=== PATIENT | female | born 1940 | race Caucasian/White ===

== ENCOUNTER 2024-09-01 12:29 | Outpatient (AMB) | payer MEDICARE, OTHER, SELFPAY ==
--- OUTSIDE RECORDS SUMMARY | 2024-09-01 12:45 | XMS_ITS | Clinical Summary ---
Author Organization [facility] Address [address] [place] [address] Phone Care Team Providers Care Pig Lead Melter Helper Name Role Phone Kaye Blunt NP Primary Care Provider Encounters Date Type Department Care Team Description 08/31/[address] [place] [address] Kaye Blunt NP Referral (Left message for patient to call back to schedule a new patient visit with a street contractor. Marzena R) from Last 3 Months Social History Tobacco Use Types Packs/Day Years Used Date Smoking Tobacco: Never Assessed Comments Unknown Sex and Gender Information Value Date Recorded Sex Assigned at Not on file Legal Sex Female 10:17 AM EST Gender Identity Not on file Sexual Orientation Not on file Plan of Treatment Health Maintenance Due Date Last Done Comments DTaP,Tdap,and Td Vaccines (1 - Tdap) 08/16/1959 Pneumococcal Vaccine: 50+ Ye ars (1 of 1 - PCV) 1990 Zoster Vaccines (1 of 2) 1990 RSV Immunization Adult Patie nts (1 - 1-dose 75+ series) 08/16/2015 COVID-19 Vaccine ( - 2023-2 5 season) 2023 Cholesterol Screening (Lipid Panel) 02/17/2024 Depression Screening 02/17/2024 Falls Risk Assessment 02/17/2024 Medicare Annual Wellness Visit 02/17/2024 Osteoporosis Screening (Bone Density Screening) 02/17/2024 Social Influencers of Health Screening 02/17/2024 Influenza Vaccine (#1) 2024 HIB Vaccines Aged Out No longer eligi ble based on patient's age to complete this topic HPV Vaccines Aged Out No longer eligi ble based on patient's age to complete this topic Hepatitis A Vaccines Aged Out No long er eligible based on patient's age to complete this topic Hepatitis B Vaccines Aged Out No long er eligible based on patient's age to complete this topic IPV Vaccines Aged Out No longer eligi ble based on patient's age to complete this topic MMR Vaccines Aged Out No longer eligi ble based on patient's age to complete this topic Meningococcal ACWY Vaccine Aged Out N o longer eligible based on patient's age to complete this topic Meningococcal B Vaccine Aged Out No l onger eligible based on patient's age to complete this topic RSV Immunization Patients Un agustín 20 months Aged Out No longer eligible b ased on patient's age to complete this topic Varicella Vaccines Aged Out No longer eligible based on patient's age to complete this topic Insurance MEDICARE [facility] MEDICARE Care Teams Pig Lead Melter Helper Relationship Specialty Start Date End Date Kaye Blunt NP PCP - General Nurse Practitioner 02/17/24
--- OUTSIDE RECORDS SUMMARY | 2024-09-01 12:45 | XMS_ITS | Clinical Summary ---
Author Organization [facility] Address [address] [place] [address] Care Team Providers Care Block Engraver Name Role Phone Kaye Blunt APRN Primary Care Provider [phone] Marcellus Cline MD Unavailable [phone] Aubrey Petersen MD Unavailable Allergies Active Allergy Reactions Criticality Noted Date Comments Quinapril Other (See Comments) 07/09/2020 Sulfamethoxazole-Trimethopr im Hives,Other (See Comments) Medium 03/10/2017 Medications aspirin enteric coated (ECOTRIN LOW STRENGTH) 81 MG EC tablet Take 1 tablet by mouth. Active B Complex Vitamins (Vitamin B Complex) Tab Active Brindall Feliz-Chromium Melissa 500-0.2 MG Tab Active estradiol (VAGIFEM) 10 MCG vaginal tablet Insert 10 mcg into the vagina. 3 Active fluticasone (FloNASE) 50 mcg/spray nasal spray fluticasone propionate 50 mcg/actuation nasal spray,suspension Active GARLIC PO Active MAGNESIUM PO Active Probiotic, Lactobacillus, Cap Active OMEprazole (PriLOSEC) 20 MG capsule Take 20 mg by mouth daily. 3 Active Red Yeast Rice Extract 600 MG Cap Active [place] Thyroid 15 MG tablet TAKE 1 TABLET BY MOUTH DAILY IN THE MORNING with 30mg [place] 3 Active [place] Thyroid 30 MG tablet TAKE 1 TABLET BY MOUTH EVERY MORNING WITH 15mg tablet 3 Active irbesartan-hydr oCHLOROthiazide (AVALIDE) 150-12.5 MG per tabletIndicatio ns:Chronic renal failure, stage 3a (HCC) Take 1 tablet by mouth daily. 90 tablet 1 Active metFORMIN (GLUCOPHAGE-XR) 500 MG 24 hr tabletIndicatio ns:Chronic renal failure, stage 3a (HCC) Take 1 tablet (500 mg total) by mouth 2 (two) times a day with meals. Swallow whole. Do not crush, break or chew. 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 05/04/2023 Encounters Date Type Department Care Team Description 07/14/2024 Orders Only NEPHROLOGY IP [address] [place] [address] Marcellus Cline MD Chronic renal failure, stage 3a (HCC) 07/13/2024 Telephone [facility] Department of Internal Medicine & Nephrology [place] [address] [place] [address] [address] [place] [address] Marcellus Cline MD 07/11/2024 1:40 PM EDT Office Visit [facility] Department of Internal Medicine & Nephrology [place] [address] [place] [phone] Marcellus Cline MD Acute cystitis without hematuria (Primary Dx); Chronic renal failure, stage 3a (HCC); Hyperkalemia; Essential hypertension; Hyponatremia; Hypertensive renal disease; Diabetic nephropathy associated with type 2 diabetes mellitus (HCC); Hypovitaminosis D 07/09/2024 Travel 07/08/2024 Telephone [facility] of Internal Medicine & Nephrology [place] [address] [facility] [address] [place] [address] Marcellus Cline MD 07/06/2024 Travel from Last 3 Months Social History Tobacco Use Types Packs/Day Years Used Date Smoking Tobacco: Never Assessed Comments Unknown Sex and Gender Information Value Date Recorded Sex Assigned at Female 03/06/2024 7:35 AM EST Legal Sex Female 4:38 PM EST Gender Identity Female 03/06/2024 7:35 AM EST Sexual Orientation Heterosexual (straight) 03/06 7:35 AM EST Last Filed Vital Signs Vital Sign Reading Time Taken Comments Blood Pressure 138/76 07/11/2024 1:38 PM EDT Pulse 102 07/11/2024 1:38 PM EDT Temperature - - Respiratory Rate - - Oxygen Saturation 96% 07/11/2024 1:38 PM EDT Inhaled Oxygen Concentration - - Weight 63 kg (139 lb) 03/07/2024 1:38 PM EST Height 152.4 cm (5') 09/14/2023 12:23 PM EDT Body Mass Index 27.15 09/14/2023 12:23 PM EDT Plan of Treatment Upcoming Encounters Date Type Department Care Team (Late st Contact Info) Description 11/11/2024 1:20 PM EDT Office Visit [facility] Department of Internal Medicine & Nephrology [place] [address] [place] [phone] Marcellus Cline MD [address] [facility] [address] [place], [place] [id number] Health Maintenance Due Date Last Done Comments Foot Exam 1950 Lipid Panel 1950 Ophthalmology Exam 1950 DTaP/Tdap/Td Vaccines (1 - Tdap) 08/16/1959 Pneumococcal Vaccines 50+ (1 of 2 - PCV) 08/16/1959 Zoster (Shingles) Vaccine (1 of 2) 1990 DXA Bone Density (Females,Ages 65 and older) 2005 RSV Vaccine 60 years and older and Patients (1 - 1-dose 75+ series) 08/16/2015 COVID-19 Vaccine ( season) 2024 02/06/2024, 11/19/2022, 05/31/2021, Additional history exists Influenza Vaccine 09/30/2024 02/06/2024, , 12/21/2021, Additional history exists Hemoglobin A1C 01/09/2025 07/09/2024, 02/22/2024 Microalbumin/Creatinine Ratio Urine 02/21/2025 02/22/2024 Creatinine with GFR 07/09/2025 07/09/2024, 02/22/2024, 09/14/2023 Hepatitis B Vaccines Aged Out No long er eligible based on patient's age to complete this topic Procedures Procedure Name Priority Date/Time Associated Diagnosis Comments FERRITIN Routine 07/09/2024 8:55 AM EDT PHOSPHORUS Routine 07/09/2024 8:55 AM EDT URIC ACID Routine 07/09/2024 8:55 AM EDT IRON AND TOTAL IRON BINDING CAPACITY Routine 07/09/2024 8:55 AM EDT VITAMIN D, 25-HYDROXY Routine 07/09/2024 8:55 AM EDT HEMOGLOBIN A1C Routine 07/09/2024 8:55 AM EDT MICROSCOPIC EXAMINATION Routine 07/09/2024 8:55 AM EDT URINALYSIS, COMPLETE Routine 07/09/2024 8:55 AM EDT BASIC METABOLIC PANEL Routine 07/09/2024 8:55 AM EDT Essential hypertension TRANSFERRIN Routine 06/24/2024 8:22 AM EDT Acute cystitis without hematuria Hyperkalemia Essential hypertension Hypertensive renal disease Hyponatremia Hypovitaminosis D Diabetic nephropathy associated with type 2 diabetes mellitus (HCC) [place] vaginitis Chronic renal failure, stage 3a (HCC) VITAMIN D 1,25 DIHYDROXY Routine 06/24/2024 8:22 AM EDT Acute cystitis without hematuria Hyperkalemia Essential hypertension Hypertensive renal disease Hyponatremia Hypovitaminosis D Diabetic nephropathy associated with type 2 diabetes mellitus (HCC) [place] vaginitis Chronic renal failure, stage 3a (HCC) PTH, INTACT WITH IONIZED CALCIUM Routine 06/24/2024 8:22 AM EDT Acute cystitis without hematuria Hyperkalemia Essential hypertension Hypertensive renal disease Hyponatremia Hypovitaminosis D Diabetic nephropathy associated with type 2 diabetes mellitus (HCC) [place] vaginitis Chronic renal failure, stage 3a (HCC) ALBUMIN/CREATININE RATIO, RANDOMURINE Routine 02/22/2024 7:49 AM EST from Last 3 Months or Most Recently Relevant to Health Maintenance Results * (ABNORMAL) Microscopic Examination (07/09/2024 8:55 AM EDT) WBC, Urine 11-30(A) 0 - 5 /hpf [facility] 1 Rbc, Urine None seen 0 - 2 /hpf [facility] 1 EPITHELIAL CELLS (NON RENAL) UR 0-10 0 - 10 /hpf [facility] 1 Urine Casts None seen None seen /lpf [facility] 1 Bacteria Few None seen/Few [facility] 1 07/09/2024 8:55 AM EDT 07/09/2024 Narrative [facility] SHAYY) - 07/11/2024 12:05 AM EDT Performed at: [facility] [address] [id number] Grass Cutter: Sahra White MD, Phone: [phone] us Marcellus Cline MD URINE ORDERABLES Final Re sult [facility] SHAYY) [facility] * (ABNORMAL) Urinalysis, Complete (07/09/2024 8:55 AM EDT) Specific [place], Urine 1.013 1.005 - 1.030 [facility] 1 PH (Urine) 6.5 5.0 - 7.5 [facility] 1 Color Ur Yellow Yellow [facility] 1 Appearance, Urine Clear Clear [facility] 1 WBC Esterase Ur 3+(A) Negative [facility] 1 Protein Negative Negative/Tra ce [facility] 1 Glucose, Urine Negative Negative [facility] 1 Ketones Negative Negative [facility] 1 Urine Occult Blood Negative Negative [facility] 1 Bilirubin, Urine Negative Negative [facility] 1 Urobilinogen 0.2 0.2 - 1.0 mg/dL [facility] 1 Nitrite, Urine Negative Negative [facility] 1 Urine Microscopic Exam See below: [facility] 1 Comment: Microscopic was indicated and was performed. 07/09/2024 8:55 AM EDT 07/09/2024 Narrative [facility] SHAYY) - 07/11/2024 12:05 AM EDT Performed at: - [facility] [id number] Grass Cutter: Sahra White MD, Phone: [phone] Marcellus Cline MD URINE ORDERABLES Final Re sult Performing Organization Address [facility]/ZIP Co de Phone Number [facility] ([place]) [facility] * Iron and Total Iron Binding Capacity (07/09/2024 8:55 AM EDT) Total Iron Binding Capacity 309 250 - 450 ug/dL [facility] 1 UIBC 242 118 - 369 ug/dL [facility] 1 Iron 67 27 - 139 ug/dL [facility] 1 Iron Saturation 22 15 - 55 % [facility] 1 07/09/2024 8:55 AM EDT 07/09/2024 Sarah [facility] SHAYY) - 07/11/2024 3:05 PM EDT Performed at: [facility] [id number] Grass Cutter: Sahra White MD, Phone: [phone] Marcellus Cline MD LAB BLOOD ORDERABLES Jennifer l Result Performing Organization Address [facility]/ZIP Co de Phone Number [facility] SHAYY) [facility] * VITAMIN D, 25-HYDROXY (07/09/2024 8:55 AM EDT) Vitamin D, 25-Hydroxy 31.6 30.0 - 100.0 ng/mL [facility] 1 Comment: Vitamin D deficiency has been defined by the [place] of [employer] and an Endocrine Society practice guideline as a level of serum 25-OH vitamin D less than 20 ng/mL (1,2). The Endocrine Society went on to further define vitamin D insufficiency as a level between 21 and 29 ng/mL (2). 1. IOM ([place] of [employer]). 2010. Dietary reference intakes for calcium and D. [place]: The National Academies Press. 2. Jay MF, Mckenzie WU, Darrian BOGGS, et al. Evaluation, treatment, and prevention of vitamin D deficiency: an Endocrine Society clinical practice guideline. JCEM. 2010; 96(5):3911-30. 07/09/2024 8:55 AM EDT 07/09/2024 Narrative [facility] ([place]) - 07/11/2024 12:05 AM EDT Performed at: - [facility] [id number] Grass Cutter: Sahra White MD, Phone: [phone] Marcellus Cline MD LAB BLOOD ORDERABLES Jennifer l Result Performing Organization Address [facility] Co de Phone Number [facility] ([place]) [facility] * URIC ACID (07/09/2024 8:55 AM EDT) Uric Acid 6.3 3.1 - 7.9 mg/dL [facility] 1 Comment: Therapeutic target for gout patients: <6.0 07/09/2024 8:55 AM EDT 07/09/2024 Narrative [facility] SHAYY) - 07/11/2024 3:05 PM EDT Performed at: - [facility] [id number] Grass Cutter: Sahra White MD, Phone: [phone] Marcellus Cline MD LAB BLOOD ORDERABLES Jennifer l Result Performing Organization Address [facility] Co de Phone Number [facility] (HEMANTH[place]ERYL) [facility] * (ABNORMAL) PHOSPHORUS (07/09/2024 8:55 AM EDT) Phosphorus 2.9(L) 3.0 - 4.3 mg/dL [facility] 1 07/09/2024 8:55 AM EDT 07/09/2024 Narrative [facility] (STARCHERYL) - 07/11/2024 3:05 PM EDT Performed at: [address] [place] [id number] Grass Cutter: Sahra White MD, Phone: [phone] Marcellus Cline MD LAB BLOOD ORDERABLES Jennifer l Result Performing Organization Address [facility] Co de Phone Number [facility] ([place]) [facility] * (ABNORMAL) Hemoglobin A1C (07/09/2024 8:55 AM EDT) Hemoglobin A1C 7.4(H) 4.8 - 5.6 % [facility] 1 Comment: Prediabetes: 5.7 - 6.4 Diabetes: >6.4 Glycemic control for adults with diabetes: <7.0 07/09/2024 8:55 AM EDT 07/09/2024 Narrative [facility] ([place]) - 07/11/2024 12:05 AM EDT Performed at: [address] [id number] Grass Cutter: Sahra White MD, Phone: [phone] Marcellus Cline MD LAB BLOOD ORDERABLES Jennifer l Result Performing Organization Address [facility] Co de Phone Number [facility] ([place]) [facility] * FERRITIN (07/09/2024 8:55 AM EDT) Ferritin 65 15 - 150 ng/mL [facility] 1 07/09/2024 8:55 AM EDT 07/09/2024 Narrative [facility] ([place]) - 07/11/2024 4:06 PM EDT Performed at: [facility] [id number] Grass Cutter: Sahra White MD, Phone: [phone] Marcellus Cline MD LAB BLOOD ORDERABLES Jennifer l Result [facility] ([place]) [facility] * (ABNORMAL) BASIC METABOLIC PANEL (07/09/2024 8:55 AM EDT) Glucose 153(H) 70 - 99 mg/dL [facility] 1 Blood Urea Nitrogen (BUN) 25 8 - 27 mg/dL [facility] 1 Creatinine 0.86 0.57 - 1.00 mg/dL [facility] 1 eGFR 67 >59 mL/min/1.7 3 [facility] 1 BUN/Creatinine Ratio 29(H) 12 - 28 [facility] 1 Sodium 130(L) 134 - 144 mmol/L [facility] 1 Potassium 5.3(H) 3.5 - 5.2 mmol/L [facility] 1 Chloride 91(L) 96 - 106 mmol/L [facility] 1 CARBON DIOXIDE 22 20 - 29 mmol/L [facility] 1 Calcium 9.7 8.7 - 10.3 mg/dL [facility] 1 Blood Blood specimen / Unknown 07/09/2024 8:55 AM EDT 07/09/2024 Narrative [facility] SHAYY) - 07/11/2024 12:05 AM EDT Performed at: 01 - [facility] [address] [id number] Grass Cutter: Sahra White MD, Phone: [phone] Marcellus Cline MD LAB BLOOD ORDERABLES Edit ed Result - Final [facility] ([place]) [facility] * PTH, INTACT WITH IONIZED CALCIUM (06/24/2024 8:22 AM EDT) Calcium, Ionized 5.1 4.5 - 5.6 mg/dL [facility] 1 PTH, Intact 41 15 - 65 pg/mL [facility] 1 Blood Blood specimen / Unknown 06/24/2024 8:22 AM EDT 06/24/2024 Narrative [facility] ([place]) - 06/25/2024 9:05 PM EDT Performed at: [facility] [address] [id number] Grass Cutter: Sahra White MD, Phone: [phone] Marcellus Cline MD LAB BLOOD ORDERABLES Jennifer l Result [facility] (STARCHERY[place]) [facility] * VITAMIN D 1,25 DIHYDROXY (06/24/2024 8:22 AM EDT) Vit D 1,25 di-OH 34.6 24.8 - 81.5 pg/mL [facility] 1 Blood Blood specimen / Unknown 06/24/2024 8:22 AM EDT 06/24/2024 Narrative [facility] (STARCHERY[place]) - 06/25/2024 4:06 PM EDT Performed at: [facility] [id number] Grass Cutter: Sahra White MD, Phone: [phone] Marcellus Cline MD LAB BLOOD ORDERABLES Jennifer l Result Performing Organization Address [facility]/ZIP Co de Phone Number [facility] ([place]) [facility] * TRANSFERRIN (06/24/2024 8:22 AM EDT) Transferrin 242 149 - 313 mg/dL [facility] 1 Blood Blood specimen / Unknown 06/24/2024 8:22 AM EDT 06/24/2024 Narrative [facility] ([place]ARCHERY[place]) - 06/25/2024 6:06 AM EDT Performed at: [facility] [id number] Grass Cutter: Sahra White MD, Phone: [phone] Marcellus Cline MD LAB BLOOD ORDERABLES Jennifer l Result Performing Organization Address [facility]/ZIP Co de Phone Number [facility] (STARCHERY[place]) [facility] * (ABNORMAL) Albumin/Creatinine Ration, RandomUrine (02/22/2024 7:49 AM EST) Albumin, Urine 36.8 Not Estab. ug/mL [facility] 1 Microalbumin/Cre atinine Ratio 73(H) 0 - 29 mg/g creat [facility] 1 Comment: Normal: 0 - 29 Moderately increased: 30 - 300 Severely increased: >300 02/22/2024 7:49 AM EST 02/22/2024 Narrative [facility] ([place]) - 02/23/2024 3:06 PM EST Performed at: - [facility] [address] [id number] Grass Cutter: Sahra White MD, Phone: [phone] us Marcellus Cline MD URINE ORDERABLES Final Re sult [facility] ([place]) [facility] 1 from Last 3 Months or Most Recently Relevant to Health Maintenance Insurance MEDICARE PART A & B [facility] Care Teams Block Engraver Relationship Specialty Start Date End Date Kaye Blunt APRN [address] [place] [address] PCP - General Family Medicine 05/04/23 Marcellus Cline MD [address] [place] [address] Nephrology 05/04/23 Aubrey Petersen MD [address] [place] [address] Endocrinology 09/14/23
--- OUTSIDE RECORDS SUMMARY | 2024-09-01 12:45 | XMS_ITS | Clinical Summary ---
Author Organization [facility] Facility Address [address] [place] [address] Care Team Providers Care Trimmer Sawyer Name Role Phone Kaye Blunt NP Primary Care Provider [phone] Allergies Active Allergy Reactions Criticality Noted Date Comments Quinapril Other (see comments) 07/09/2020 Quinolones Hives 03/10/2017 Sulfamethoxazole-Trimethopr im Hives,Other (see comments) 03/10/2017 Medications aspirin (ST ROSA) 81 MG EC tablet Take 1 tablet by mouth 1 (one) time each day Active Estradiol 10 MCG tablet estradiol 10 mcg vaginal tablet 0 Active fluticasone (FLONASE) 50 MCG/ACT nasal spray fluticasone propionate 50 mcg/actuation nasal spray,suspensio n Active metFORMIN XR (GLUCOPHAGE-XR) 500 MG 24 hr tablet metformin ER 500 mg tablet,extended release 24 hr Active omeprazole (PriLOSEC) [address] capsule omeprazole 20 mg capsule,delayed release Active Red Yeast Rice Extract 600 MG capsule Active thyroid (ARMOUR) 30 MG tablet Take 2 tablets by mouth 1 (one) time each day Active B COMPLEX VITAMINS ER PO Activ e Fish Oil-Cholecalcife rol (OMEGA-3 FISH OIL/VITAMIN D3 PO) Take 2 capsules by mouth 2 (two) times a day Active Multiple Vitamin (MULTIVITAMIN ADULT PO) Active Magnesium 200 MG tablet Active irbesartan-hydro CHLOROthiazide (AVALIDE) 150-12.5 MG per tablet Take 1 tablet by mouth 1 (one) time each day 90 tablet 11 3 Active Dapagliflozin Propanediol (Farxiga) 10 MG tablet Take 10 mg by mouth 1 (one) time each day in the morning 90 tablet 5 3 Active amLODIPine (NORVASC) 5 MG tablet Take 1 tablet (5 mg total) by mouth 1 (one) time each day 90 tablet 3 4 Active Active Problems Problem Noted Date Diagnosed Date Type 2 diabetes mellitus with diabetic nephropat hy 11/20/2020 Stage 3a chronic kidney disease 11/20/2020 Hypo-osmolality and hyponatremia 09/27/2020 Chronic kidney disease stage 3 07/09/2020 Essential hypertension 07/09/2020 Hyperkalemia 07/09/2020 Hypertensive renal disease 07/09/2020 Type 2 diabetes mellitus 07/09/2020 Atrophic vaginitis 03/10/2017 Family History Medical History Relation Comments Cancer Father Diabetes Mother Heart disease Mother Hypertension Mother Diabetes Sibling Relation Status Comments Father Mother Sibling Social History Tobacco Use Types Packs/Day Years Used Date Smoking Tobacco: Never Smokeless Tobacco: Never Tobacco Cessation:Counseling Given: Not Answered Alcohol Use Standard Drinks/Week Comments Not Currently 0 (1 standard drink = 0.6 oz pure alcohol) Alcoholic Drinks/day: Occasional social drink Comments Unknown Sex and Gender Information Value Date Recorded Sex Assigned at Not on file Legal Sex Female 4:56 PM EST Gender Identity Not on file Sexual Orientation Not on file Last Filed Vital Signs Vital Sign Reading Time Taken Comments Blood Pressure 177/81 12/09/2022 4:29 PM EDT Pulse 110 12/09/2022 4:29 PM EDT Temperature - - Respiratory Rate - - Oxygen Saturation 96% 07/10/2020 2:44 PM EDT Inhaled Oxygen Concentration - - Weight 64.4 kg (142 lb) 12/09/2022 4:29 PM EDT Height 152.4 cm (5') 01/13/2020 12:00 PM EST Body Mass Index 27.73 01/13/2020 12:00 PM EST Plan of Treatment Health Maintenance Due Date Last Done Comments Hepatitis B Vaccine (1 of 3 - Risk 3-dose series) 2000 Diabetes: Ophthalmology Exam 04/02/2020 Diabetes: Pedal Pulse Checked 04/02/2020 Diabetes: Sensory Foot Exam 04/02/2020 Diabetes: Visual Foot Exam 04/02/2020 Diabetes: Hemoglobin A1C 09/10/2023 024, 12/05/2022, 07/09/2022, Additional history exists Influenza Vaccine (Season Ended) 2024 12/30/19 19, 12/06/2015 Pneumococcal Vaccine: 50+ Years Completed 9, 08/17/2014 Pneumococcal Vaccine: Peds ( 0 to 5 Years) and At-Risk Patients (6 to 49 Years) Discontinued 08/20/2018, 08/17/2014 Procedures Procedure Name Priority Date/Time Associated Diagnosis Comments HEMOGLOBIN A1C Routine 12/05/2022 8:04 AM EDT Stage 3a chronic kidney disease (HCC) Essential hypertension Hypo-osmolality and hyponatremia Hypertension Hypertensive renal disease Type 2 diabetes mellitus with diabetic nephropathy (HCC) Hyperkalemia from Last 3 Months or Most Recently Relevant to Health Maintenance Results * (ABNORMAL) Hemoglobin A1c (12/05/2022 8:04 AM EDT) Hemoglobin A1C 7.3(H) (4.0-5.6) % [facility] Comment: MONITORING: In known diabetic patients, hemoglobin A1c targets should be discussed with health care provider. DIAGNOSTIC USE: The [place] Diabetes Association (ADA) and the World Health Organization (WHO) recommend the use of HbA1c to diagnose diabetes using a threshold of 6.5%. Patients who have an HbA1c between 5.7% and 6.4% are considered at increased risk for developing diabetes in the future. CAUTION: Falsely low HbA1c results may be observed in patients with hemolytic anemia, homozygous forms of abnormal hemoglobin (e.g. SS, CC, SC), , recent blood loss or hemoglobin F greater than 7%. Fructosamine may be used as an alternate test in these cases. REFERENCE: ADA: Standards of Medical Care in Diabetes 2020, The Journal of Clinical and Applied Research and Education Volume 43, Supplement 1 Testing performed or reported by [facility], a Service of [facility], [address] [place] [id number] Francisco Spain MD, Special Projects Manager [facility]# [id number] Blood specimen (specimen) Venous blood / Unknown 12/05/2022 8:04 AM EDT 12/05/2022 8:06 AM EDT Marcellus Cline MD LAB BLOOD ORDERABLES Jennifer beckford Result [facility] from Last 3 Months or Most Recently Relevant to Health Maintenance Insurance [facility] Medicare [facility] Medicare Care Teams Trimmer Sawyer Relationship Specialty Start Date End Date Kaye Blunt NP [address] [place] [address] PCP - General 03/12/20
--- NOTE | 2024-09-01 13:04 | A.SPINEOV_ITS ---
Vital Signs 09/01/24 13:10 Height 5 ft Weight 143 lb BMI 27.9 Intake Visit Reasons: nerve root impingement at L4-5 Intake Note: Ms. Gabriel is here today c/o Low back pain. Power Distribution Engineer Required: No Allergies sulfamethoxazole (From Bactrim) Allergy (Severe, Verified 09/01/24 13:11) Hives trimethoprim (From Bactrim) Allergy (Severe, Verified 09/01/24 13:11) Hives Physical Exam Vital Signs: BMI result Body Mass Index 27.9 Assessment & Plan Assessment & Plan (1) Lumbar stenosis: Code(s): M48.061 - Spinal stenosis, lumbar region without neurogenic claudication Category: Medical Plan This is a self-referred 84-year-old female presents to the office today for complaints of bilateral lower extremity pain that radiates down the back of her legs into her calves. The pain is worse with standing walking it is better when she sits. The pain has been coming on for years but for whatever reason about 8 or 9 months ago it started to get progressively worse. She has gotten now to the point where she is having a hard time doing many of the things she normally enjoys. Even simple things like walking through the grocery store are very difficult. She tried physical therapy, chiropractic as well as cortisone injections at the [facility]. She has been taking Tylenol as well. Unfortunately these things are not helping. She also saw a vascular specialist who told her that the arteries in her legs looked fine. The symptoms are only getting worse, she found Dr. Urrutia name online as a minimally invasive wound care specialist and came in to see us today for an evaluation. PMH: She is reasonably healthy, history of hypertension, type 2 diabetes with an A1c that normally ranges around 7, hypothyroidism. She has never had surgery. Denies any history of cardiopulmonary disease, stroke, liver or kidney disease, bleeding disorders, blood clots, cancer or infections. Social hx: She does not smoke, drink or use any recreational drugs Medications: Baby aspirin, [place] thyroid, metformin, Zetia, omeprazole, irbesartan Allergies: Bactrim, Levaquin and Ceftin Physical exam: Awake alert oriented no acute distress, able to stand up out of a chair independently walk to the examining table, slowly get up on the table, strength and reflexes are full. Imaging review: Lumbar MRI done at [facility] shows moderate to severe stenosis at L4-5. There other more mild degrees of spondylosis but nothing significant. There is facet arthropathy at L4-5. Impression: 84-year-old female presents with neurogenic claudication radiating down the back of the legs into her calves when she stands and walks, gets better when she sits down. She has moderate to severe stenosis at L4-5. Films were reviewed with Dr. Urrutia. In light of the fact that the patient has attempted conservative treatment with no improvement, we believe she would be a good candidate for a left-sided approach for bilateral L4-5 decompression. We will get a set of standing x-rays just as a precaution because of the facet arthropathy but doubtful that she has any actual instability. We have scheduled her for surgery on September 22. She may require preoperative clearance from her primary care physician because of her age. The patient was given risk and benefits of surgery including but not limited to infection, hematoma, nerve injury, durotomy, weakness, bowel/bladder injury, persistent pain. We also discussed the option to continue with conservative treatment and patient wishes to proceed with surgery. They are aware they should stop aspirin and fish oil 7 days prior to surgery. All questions were answered to the best of our ability. If there is anything about this patients medical history that we have overlooked or concerns you have about us proceeding with surgery we would appreciate any input you can offer Thank you for allowing us to care for your patient. The total time spent with this visit with this patient was 45 minutes reviewing history, physical exam, lumbar imaging review, and implementation of treatment plan or further diagnostic testing Jose D Urrutia MD,PhD [facility] Orders: Orders XR lumbar spine 4V min Today M48.061 - Spinal stenosis, lumbar region without neurogenic claudication Coding Level of Care Code New Pt Level 4 (28718) Diagnoses Lumbar stenosis M48.061
[2024-09-01 13:10] VITALS: BMI 27.9
== END 2024-09-01 14:33 | disposition home or self-care (01) ==
LOC: HO.HNS 12:30
PROVIDERS: PCP Nurse Practitioner Family; Visit Provider Physician Assistant
DX: M48.061 Spinal stenosis, lumbar region without neurogenic claudication (principal)
CPT/HCPCS: 99204

== ENCOUNTER 2024-09-01 12:29 | Outpatient (REF) | payer MEDICARE, OTHER, SELFPAY ==
--- NOTE | ~2024-09-01 | XR_ITS ---
CLINICAL HISTORY: M48.061 - Spinal stenosis, lumbar region without neurogenic claudication --- Additional Notes or Special Instructions: standing, a p, lateral with flex ext views 4 views lumbar spine Comparison: None provided Findings: Normal vertebral body alignment. No acute fracture. Osteopenia. Multilevel spondylosis with diffuse osteophytosis, facet arthropathy and degenerative disc disease. Multilevel intervertebral foraminal narrowing pronounced at L5-S1. Dextroscoliosis. Aortic calcifications. IMPRESSION: Chronic changes without acute findings. This document has been electronically signed by: Jose Leung MD on 09/02/2024 18:12:18
--- OUTSIDE RECORDS SUMMARY | 2024-09-01 13:43 | XMS_ITS ---
Author Name [facility] Organization Unknown History of Medication Use Medication Directions Dispensed Refills Start Date End Date Stat us metFORMIN (GLUMETZA) 1000 MG (MOD) 24 hr tablet Take 1 tablet (1,000 mg total) by mouth every morning with breakfast. Swallow whole. Do not crush, break or chew. 07/11/2024 active metFORMIN (GLUCOPHAGE-XR) 500 MG 24 hr tablet Take 1 tablet (500 mg total) by mouth every morning with breakfast. Swallow whole. Do not crush, break or chew. 03/14/2024 07/11/2024 aborted nitrofurantoin monohydrate (MACROBID) 100 MG capsule Take 1 capsule (100 mg total) by mouth 2 (two) times a day with meals. Dispense generic equivalent of MACROBID 03/07/2024 03/13/2024 active fluconazole (diFLUcan) 150 MG tablet Take 1 tablet (150 mg total) by mouth once. 03/07/2024 03/08/2024 active amLODIPine (NORVASC) 2.5 MG tablet Take 1 tablet (2.5 mg total) by mouth daily. 09/14/2023 12/14/2023 active empagliflozin (JARDIANCE) 25 MG tablet Take 25 mg by mouth daily. 09/10/2023 active metFORMIN (GLUCOPHAGE-XR) 500 MG 24 hr tablet TAKE 1 TABLET BY MOUTH DAILY AT SUPPER 02/27/2023 active [place] Thyroid 15 MG tablet TAKE 1 TABLET BY MOUTH DAILY IN THE MORNING with 30mg [place] 02/06/2023 active [place] Thyroid 30 MG tablet TAKE 1 TABLET BY MOUTH EVERY MORNING WITH 15mg tablet 02/06/2023 active Brindall Feliz-Chromium Melissa 500-0.2 MG Tab active Probiotic, Lactobacillus, Cap active Red Yeast Rice Extract 600 MG Cap active Allergies Allergen Reaction Severity Comment Documented Date Source Statu s QUINAPRIL OTHER (SEE COMMENTS) 07/09/2020 [facility] active SULFAMETHOXAZOLE-TRI METHOPRIM OTHER (SEE COMMENTS) [facility]10/[facility] Problems Problem Status Onset Date Problem Type Date of Resolution Source Hyperkalemia active [facility] Essential hypertension active [facility]osi [facility]Act [facility] Acute cystitis without hematuria active [facility] Hypovitaminosis D active [facility]osis[facility] Hyponatremia active EncounterDiagnosisAct [facility] Chronic renal failure, stage 3a active 2023-05-04 ProblemAct [facility] Diabetic nephropathy associated with type 2 diabetes mellitus active 2023-05-04 ProblemAct [facility] Hypertensive renal disease active [facility] Encounters Encounter Type Encounter Reason Primary Diagnosis Location Date Ambulatory [facility] 07/11/2024 Ambulatory [facility] 03/07/2024 Ambulatory Chronic kidney disease, stage 3a Chronic kidney disease, stage 3a [facility] 09/14/2023 Ambulatory Chronic kidney disease, stage 3a Chronic kidney disease, stage 3a [place] 05/04/2023 Care Team Organization Name Specialty Phone Email Start Date End [place] [facility] Primary Care 07/11/2024 08/09/2024 [place] 05/04/2023 08/09/2024 [place] JOSE ANTONIO [facility] Primary Care 05/04/2023 [place] 04/02/2023
== END 2024-09-01 12:30 | disposition home or self-care (01) ==
LOC: HO.HOSX 12:29
PROVIDERS: PCP Nurse Practitioner Family; Visit Provider Physician Assistant
DX: M48.061 Spinal stenosis, lumbar region without neurogenic claudication (principal)
CPT/HCPCS: 72110; 99202

== ENCOUNTER → 2024-09-01 13:47 | Outpatient (BNV) | payer MEDICARE, OTHER, SELFPAY | PROVIDERS: PCP Nurse Practitioner Family; Visit Provider Radiology Diagnostic Radiology | DX: M48.062 Spinal stenosis, lumbar region with neurogenic claudication (principal) | CPT/HCPCS: 72110 ==

== ENCOUNTER → 2024-09-15 11:24 | Outpatient (BNV) | payer MEDICARE, OTHER, SELFPAY | PROVIDERS: PCP Nurse Practitioner Family; Visit Provider Internal Medicine | DX: R00.0 Tachycardia, unspecified (principal) | CPT/HCPCS: 93010 ==

== ENCOUNTER 2024-09-22 07:47 | Day surgery (SDC) | payer MEDICARE, OTHER, SELFPAY ==
--- OUTSIDE RECORDS SUMMARY | 2024-09-06 11:47 | XMS_ITS | Clinical Summary ---
Author Organization [facility] Facility Address [address] [place] [id number] Care Team Providers Care Continuous Mining Machine Coal Miner Name Role Phone Kaye Blunt NP Primary Care Provider + [phone] Allergies Active Allergy Reactions Criticality Noted Date [...] 12/05/2022, 07/09/2022, Additional history exists Influenza Vaccine (#1) 2024 12/29/2018, 2015 Pneumococcal Vaccine: 50+ Years Completed 9, 08/17/2014 [...] AM EDT) Hemoglobin A1C 7.3(H) (4.0-5.6) % [facility] Comment: MONITORING: In known diabetic patients, hemoglobin A1c targets should be discussed with health care provider. DIAGNOSTIC USE: The [place] Diabetes Association (ADA) and the World Health [...] Supplement 1 Testing performed or reported by [facility], a Service of [facility], [address] [place] [address] Francisco Spain MD, Asphalt Distributor Tender [facility]# [id number] Blood specimen (specimen) Venous blood / Unknown 12/05/2022 8:04 AM EDT 12/05/2022 8:06 AM EDT us Marcellus Cline MD LAB BLOOD ORDERABLES Jennifer analy Result [facility] from Last 3 Months or Most Recently Relevant to Health Maintenance Insurance [facility] Medicare [facility] Medicare Care Teams Continuous Mining Machine Coal Miner Relationship Specialty Start Date End Date Kaye Blunt NP [address] [place] [address] PCP - General 03/12/20
--- OUTSIDE RECORDS SUMMARY | 2024-09-06 11:47 | XMS_ITS | Clinical Summary ---
Author Organization [facility] Address [address] [place] [address] Care Team Providers Care Carding Machine Operator Name Role Phone Kaye Blunt APRN Primary Care Provider [phone] Marcellus Cline MD Unavailable [phone] Aubrey Petersen MD Unavailable Allergies Active Allergy [...] Yeast Rice Extract 600 MG Cap Active [place] Thyroid 15 MG tablet TAKE 1 TABLET BY MOUTH DAILY IN THE MORNING with 30mg [place] 3 Active [place] Thyroid 30 MG tablet TAKE 1 TABLET [...] Description 07/14/2024 Orders Only NEPHROLOGY IP [address] [place] [address] Marcellus Cline MD Chronic renal failure, stage 3a (HCC) 07/13/2024 Telephone [facility] Department of Internal Medicine & Nephrology [place] [address] [place] [address] [address] [place] [address] Marcellus Cline MD 07/11/2024 1:40 PM EDT Office Visit [facility] Department of Internal Medicine & Nephrology [place] [address] [place] [phone] Marcellus Cline MD Acute cystitis without hematuria (Primary Dx); Chronic renal failure, stage 3a (HCC); Hyperkalemia; Essential hypertension; Hyponatremia; Hypertensive renal disease; Diabetic nephropathy associated with type 2 diabetes mellitus (HCC); Hypovitaminosis D 07/09/2024 Travel 07/08/2024 Telephone [facility] of Internal Medicine & Nephrology [place] [address] [facility] [address] [place] [address] Marcellus Cline MD 07/06/2024 Travel [...] Physicians Department of Internal Medicine & Nephrology [place] [address] [place] [phone] Marcellus Cline MD [address] [facility] [address] [place], [place] [id number] Health Maintenance Due Date Last Done Comments [...] - 07/11/2024 12:05 AM EDT Performed at: [facility] [address] [id number] Hose Tester: Sahra White MD, Phone: [phone] us Marcellus Cline MD URINE ORDERABLES Final Re sult [facility] SHAYY) [facility] 1 * (ABNORMAL) Urinalysis, Complete (07/09/2024 8:55 AM EDT) Specific [place], Urine 1.013 1.005 - 1.030 [facility] 1 [...] 07/11/2024 12:05 AM EDT Performed at: - [facility] [id number] Hose Tester: Sahra White MD, Phone: [phone] Marcellus Cline MD URINE ORDERABLES Final Re sult Performing Organization Address [facility]/ZIP Co de Phone Number [facility] (WAYNE) [...] - 07/11/2024 3:05 PM EDT Performed at: [facility] [id number] Hose Tester: Sahra White MD, Phone: [phone] Marcellus Cline MD LAB BLOOD ORDERABLES Jennifer l Result Performing Organization Address [facility]/ZIP Co de Phone Number [facility] SHAYY) [facility] * VITAMIN D, 25-HYDROXY (07/09/2024 8:55 AM EDT) Vitamin D, 25-Hydroxy 31.6 30.0 - 100.0 ng/mL [facility] 1 Comment: Vitamin D deficiency has been defined by the Noble of Medicine and an Endocrine Society practice guideline as a level of serum 25-OH vitamin D less than 20 ng/mL (1,2). The Endocrine Society went on to further define vitamin D insufficiency as a level between 21 and 29 ng/mL (2). 1. IOM (Noble of Medicine). 2010. Dietary reference intakes for calcium and D. [place]: The National Academies Press. 2. Jay MF, Mckenzie WU, Darrian BOGGS, et al. Evaluation, treatment, and prevention of vitamin D deficiency: an Endocrine Society clinical practice guideline. JCEM. 2010; 96(3):2621-30. 07/09/2024 8:55 AM EDT 07/09/2024 Narrative [facility] ([facility]) - 07/11/2024 12:05 AM EDT Performed at: - [facility] [id number] Hose Tester: Sahra White MD, Phone: [phone] Marcellus Cline MD LAB BLOOD ORDERABLES Jennifer l Result Performing Organization Address [facility] Co de Phone Number [facility] ([place]) [facility] 1 * URIC ACID (07/09/2024 8:55 AM EDT) Uric Acid 6.3 3.1 - 7.9 mg/dL [facility] 1 Comment: Therapeutic target for gout patients: <6.0 07/09/2024 8:55 AM EDT 07/09/2024 Narrative [facility] SHAYY) - 07/11/2024 3:05 PM EDT Performed at: - [facility] [id number] Hose Tester: Sahra White MD, Phone: [phone] Marcellus Cline MD LAB BLOOD ORDERABLES Jennifer l Result Performing Organization Address [facility] Co de Phone Number [facility] (HEMANTHCHERYL) [facility] 1 * (ABNORMAL) PHOSPHORUS (07/09/2024 8:55 AM EDT) Phosphorus 2.9(L) 3.0 - 4.3 mg/dL [facility] 1 07/09/2024 8:55 AM EDT 07/09/2024 Narrative [facility] (STARCHERYL) - 07/11/2024 3:05 PM EDT Performed at: [address] [place] [id number] Hose Tester: Sahra White MD, Phone: [phone] Marcellus Cline MD LAB BLOOD ORDERABLES Jennifer l Result Performing Organization Address City/[facility] Co de Phone Number [facility] ([place]) [facility] 1 * (ABNORMAL) Hemoglobin A1C (07/09/2024 8:55 AM EDT) Hemoglobin A1C 7.4(H) 4.8 - 5.6 % [facility] 1 Comment: Prediabetes: 5.7 - 6.4 Diabetes: >6.4 Glycemic control for adults with diabetes: <7.0 07/09/2024 8:55 AM EDT 07/09/2024 Narrative [facility] ([place]) - 07/11/2024 12:05 AM EDT Performed at: [address] [id number] Hose Tester: Sahra White MD, Phone: [phone] Marcellus Cline MD LAB BLOOD ORDERABLES Jennifer l Result Performing Organization Address [facility] Co de Phone Number [facility] ([place]) [facility] 1 * FERRITIN (07/09/2024 8:55 AM EDT) Ferritin 65 15 - 150 ng/mL [facility] 1 07/09/2024 8:55 AM EDT 07/09/2024 Narrative [facility] ([place]) - 07/11/2024 4:06 PM EDT Performed at: [facility] [id number] Hose Tester: Sahra White MD, Phone: [phone] Marcellus Cline MD LAB BLOOD ORDERABLES Jennifer [...] AM EDT Performed at: 01 - [facility] [address] [id number] Hose Tester: Sahra White MD, Phone: [phone] Marcellus Cline MD LAB BLOOD ORDERABLES Edit [...] 06/25/2024 9:05 PM EDT Performed at: [facility] [address] [id number] Hose Tester: Sahra White MD, Phone: [phone] Marcellus Cline MD LAB BLOOD ORDERABLES Jennifer l Result [facility] (STARCHERY[facility]) [facility] 1 * VITAMIN D 1,25 DIHYDROXY (06/24/2024 8:22 AM EDT) Vit D 1,25 di-OH 34.6 24.8 - 81.5 pg/mL [facility] 1 Blood Blood specimen / Unknown 06/24/2024 8:22 AM EDT 06/24/2024 Narrative [facility] (STARCHERY[facility]) - 06/25/2024 4:06 PM EDT Performed at: [facility] [id number] Hose Tester: Sahra White MD, Phone: [phone] Marcellus Cline MD LAB BLOOD ORDERABLES Jennifer l Result Performing Organization Address [facility]/ZIP Co de Phone Number [facility] ([place]) [facility] 1 * TRANSFERRIN (06/24/2024 8:22 AM EDT) Transferrin 242 149 - 313 mg/dL [facility] 1 Blood Blood specimen / Unknown 06/24/2024 8:22 AM EDT 06/24/2024 Narrative [facility] (STARCHERY[facility]) - 06/25/2024 6:06 AM EDT Performed at: [facility] [id number] Hose Tester: Sahra White MD, Phone: [phone] Marcellus Cline MD LAB BLOOD ORDERABLES Jennifer l Result Performing Organization Address City/[facility]/ZIP Co de Phone Number [facility] (STARCHERY[facility]) [...] 3:06 PM EST Performed at: - [facility] [address] [id number] Hose Tester: Sahra White MD, Phone: [phone] us Marcellus Cline MD URINE ORDERABLES Final Re sult [facility] ([facility]) [facility] 1 from Last 3 Months or Most Recently Relevant to Health Maintenance Insurance MEDICARE PART A & B [facility] Care Teams Carding Machine Operator Relationship Specialty Start Date End Date Kaye Blunt APRN [address] [place] [address] PCP - General Family Medicine 05/04/23 Marcellus Cline MD [address] [place] [address] Nephrology 05/04/23 Aubrey Petersen MD [address] [place] [address] Endocrinology 09/14/23
--- OUTSIDE RECORDS SUMMARY | 2024-09-06 11:48 | XMS_ITS | Clinical Summary ---
Author Organization [facility] Address [address] [facility] [place] [address] Phone Care Team Providers Care Hub Bander Name Role Phone Kaye Blunt NP Primary Care Provider Encounters Date Type Department Care Team Description 08/31/[address] [place] [address] Kaye Blunt NP Referral (Left message for patient to call back to schedule a new patient visit with a tie fastener. Marzena Ram) from Last 3 Months Social History Tobacco Use Types Packs/Day Years Used Date Smoking Tobacco: Never Assessed Comments Unknown Sex and Gender Information Value Date Recorded Sex Assigned at Not on file Legal Sex Female 10:17 AM EST Gender Identity Not on file Sexual Orientation Not on file Plan of Treatment Upcoming Encounters Date Type Department Care Team (Late st Contact Info) Description 02/02/2025 10:20 AM EST Office Visit [facility] [address] [facility] [address] [place] [phone] Ervin Wright MD [address] [facility] [address] [place] [address] Health Maintenance Due Date Last Done Comments [...] age to complete this topic Insurance MEDICARE [facility] MEDICARE Care Teams Hub Bander Relationship Specialty Start Date End Date Kaye Blunt NP PCP - General Nurse Practitioner 02/17/24
--- NOTE | 2024-09-15 | ECG_ITS ---
Test Reason : preop Blood Pressure : */* mmHG Vent. Rate : 103 BPM Atrial Rate : 103 BPM P-R Int : 156 ms QRS Dur : 84 ms QT Int : 306 ms P-R-T Axes : 61 75 61 degrees QTcB Int : 400 ms Sinus tachycardia Possible Left atrial enlargement Borderline ECG No previous ECGs available Referred By: Kaye Ludwig Electronically Signed By: LEROY DUKE
[2024-09-15 10:15] VITALS: BP 184/77; PULSE 92; RESP 20; O2SAT 97; BMI 28.5
[2024-09-15 11:26] LABS: Hematocrit 39.6 % (37.0-47.0); Hemoglobin 14.0 g/dl (12.0-16.0); Mean Corpuscular HGB Conc 35.4 g/dl (31.0-35.0); Mean Corpuscular Hemoglobin 31.3 pg (27.0-33.0); Mean Corpuscular Volume 88.6 fL (80.0-98.0); NRBC Abs Auto 0.000 X10*3/uL (0.0-0.012); NRBC Pct Auto 0.0 /100WBC (0.0-0.2); Platelet Count 234 X10*3/uL (160-400); Red Blood Count 4.47 X10*6/uL (4.20-5.50); White Blood Count 7.6 X10*3/uL (4.8-10.8)
[2024-09-15 11:47] LABS: Hemoglobin A1C 183.8487 umol/L; Total Hemoglobin (HGBA1C) 3637.1427 umol/L
[2024-09-15 11:51] LABS: Anion Gap 15 (12-20); Blood Urea Nitrogen 28 mg/dL (9-16); Calcium 9.8 mg/dL (8.4-10.2); Carbon Dioxide 25 mmol/L (22-29); Chloride 93 mmol/L (96-108); Creatinine Clr Calc Pharmacy 39.0; Estimated Glomerular Filt Rate 59; Potassium 4.2 mmol/L (3.3-5.1); Sodium 129 mmol/L (135-145)
[2024-09-22] VITALS (11 sets, daily range): BP systolic 114–196; BP diastolic 49–83; PULSE 72–92; RESP 12–16; TEMP 36.1–36.8; O2SAT 92–99; BMI 28.6
--- NOTE | ~2024-09-22 | FL_ITS ---
EXAMINATION: FL GUIDANCE ONLY HISTORY: L3-4 DECOMPRESSION COMPARISON: Correlation is made with plain films of the lumbar spine dated 09/01/2024. TECHNIQUE: Fluoroscopy time: Less than 1 minute. Cumulative Dose: 2.93 mGy. DAP: 0.799 mGym2 Images: 1. FINDINGS: A single fluoroscopic spot film of the lumbar spine in the lateral projection demonstrates a probe directed to the L4-5 intervertebral disc space. FL/FL guidance in OR IMPRESSION: Fluoroscopy during procedure. Please see procedure report for additional information. Electronically signed by: Gustavo Marin MD 09/22/2024 11:19 AM EDT
--- NOTE | 2024-09-22 06:59 | P.HPSUR_ITS ---
Pre-Procedural Eval Section A - 24 Hr Update-Section A only Date of Service: 09/22/24 Section B - Complete if H&P > 30 days Chief Complaint: Spinal stenosis, lumbar region without neurogenic Allergies: Allergies Allergy/AdvReac Type Severity Reaction Status Date / Time sulfamethoxazole (From Allergy Severe Hives Verified 09/01/24 13:11 Bactrim) trimethoprim (From Bactrim) Allergy Severe Hives Verified 09/01/24 13:11 Quinolones Allergy Intermediate Hives Verified 09/15/24 10:09 cefuroxime (From Ceftin) Allergy Unknown long Verified 09/15/24 10:09 ago-does not know reaction ciprofloxacin Allergy Unknown long Verified 09/15/24 10:09 ago-does not know reaction lisinopril Allergy Unknown does not Verified 09/15/24 10:09 remember reaction paroxetine (From Paxil) Allergy Unknown does not Verified 09/15/24 10:09 remember reaction Penicillins Allergy Unknown long Verified 09/15/24 10:09 ago-does not know reaction Review of Systems Sugical H&P ROS: Negative: Constitution, Cardiovascular, Respiratory, Neurological, Psychiatric, Hem-Onc, Allergic/Immunologic, Gastrointestinal, G enitourinary, Musculoskeletal, Integumentary, Endocrine and Eyes/Ears/Nose/Throat Exam Surgical H&P Exam: Not Evaluated: HEENT, Not Evaluated: Heart, Not Evaluated: Lungs, Not Evaluated: Extremities, Not Evaluated: Abdomen, Not Evaluated: Skin and Not Evaluated: Neurological Exam Comment: The patient is awake, alert, no acute distress. Proposed surgical incision site is clean, dry, no signs of recent injury or trauma. Plan Diagnosis/Plan: Unchanged I have reviewed the history and physical and performed a pertinent physical examination on my patient. No changes have occurred unless specified. Plan remains the same, left-sided approach for bilateral L4-5 lumbar decompression Time Spent With Patient Time: Total time managing care of this patient today ___7_ minutes.
[2024-09-22 08:53] LABS: Glucose, Whole Blood 177 mg/dL (60-115)
[2024-09-22] MEDS: Lactated Ringers 1,000 ML 100 ML IVCONT (09:05)
[2024-09-22 09:07] LABS: Anion Gap 13 (12-20); Carbon Dioxide 25 mmol/L (22-29); Chloride 103 mmol/L (96-108); Potassium 4.4 mmol/L (3.3-5.1); Sodium 137 mmol/L (135-145)
--- NOTE | 2024-09-22 09:23 | HO.ANESPROP2 ---
Documented by User: Kaye Ludwig NP 09/16/24 09:48 HPI - Anesthesia Eval Consult details Narrative: 84yo F for Bilateral Unilateral Approach for a Bilateral L3-4 Decompression, 09/22/24 Na low @ 129 with preop labs. Surgical team notified that patient needs optimization prior to surgery. No recent illness No CP/SOB with activity limited to pain HTN: BP up at PAT r/t nerves, checks at home with BP's ~ 120/60. Will bring home log DOS DM: metformin, does not check POC PONV: severe N/V with bleph, severe motion sickness. Reviewed risks of scopolamine (dizzy, urinary retention, confusion in older adults) - pt opts to have DOS CKD: Follows renal htn, CKD PMFSH Active Problems Active Problems: All Active Problems Lumbar stenosis (Acute) Past Medical History Medical History (Updated 09/15/24 @ 10:26 by Avis Sherman RN) White coat syndrome with hypertension PONV (postoperative nausea and vomiting) PAD (peripheral artery disease) Type 2 diabetes mellitus Steatosis of liver RLS (restless legs syndrome) Osteopenia Hypothyroid HTN (hypertension) Hyperlipidemia GERD (gastroesophageal reflux disease) Fibromyalgia Renal cyst Chronic renal insufficiency Anxiety Family History Family history of problems with anesthesia: No Surgical History Surgical History (Updated 09/22/24 @ 08:14 by Gail Reynolds RN) History of tonsillectomy and adenoidectomy H/O colonoscopy Hx of bilateral cataract extraction Hx of blepharoplasty History of Problems with Anesthesia: Yes (PONV) Social History Social History Are you a primary director of medicare to a significant other at home: No Do you presently have visiting nurse or other home services: No Patient Tobacco Use Status: Never used Tobacco Use of substances other than those prescribed or required for medical reasons: No Have you been hit, kicked, punched, or otherwise hurt by someone within the past year? If so, by whom?: No Spiritual Healthcare Practices: no Sabianist Healthcare Practices: no Cultural Healthcare Practices: no Are you DNR?: No Advance Directives on File: No FDLMP: n/a Poor oral hygiene: No Meds Allergies Allergy/AdvReac Type Severity Reaction Status Date / Time sulfamethoxazole (From Allergy Severe Hives Verified 09/01/24 13:11 Bactrim) trimethoprim (From Bactrim) Allergy Severe Hives Verified 09/01/24 13:11 Quinolones Allergy Intermediate Hives Verified 09/15/24 10:09 cefuroxime (From Ceftin) Allergy Unknown long Verified 09/15/24 10:09 ago-does not know reaction ciprofloxacin Allergy Unknown long Verified 09/15/24 10:09 ago-does not know reaction lisinopril Allergy Unknown does not Verified 09/15/24 10:09 remember reaction paroxetine (From Paxil) Allergy Unknown does not Verified 09/15/24 10:09 remember reaction Penicillins Allergy Unknown long Verified 09/15/24 10:09 ago-does not know reaction Home Medications ?Medication ?Instructions ?Recorded ?Confirmed ?Last Taken ?Type ezetimibe 10 mg tablet 10 mg PO QAM 09/14/24 09/15/24 Unknown History ipratropium bromide 42 mcg (0.06 2 spray intranasal TID PRN Nasal 09/14/24 09/15/24 Unknown History %) nasal spray Congestion irbesartan 150 1 tab PO QAM 09/14/24 09/15/24 Unknown History mg-hydrochlorothiazide 12.5 mg tablet metformin 500 mg tablet,extended 500 mg PO QAM 09/14/24 09/15/24 Unknown History release 24 hr omeprazole 20 mg capsule,delayed 20 mg PO BEDTIME 09/14/24 09/15/24 Unknown History release red yeast rice 600 mg capsule 600 mg PO QAM 09/14/24 09/15/24 Unknown History thyroid (pork) 15 mg tablet 15 mg PO QAM 09/14/24 09/15/24 09/22/24 History ([facility] Thyroid) thyroid (pork) 30 mg tablet 30 mg PO QAM 09/14/24 09/15/24 09/22/24 History ([facility] Thyroid) vitamin B complex 1 tab PO DAILY 09/14/24 09/15/24 Unknown History aspirin 81 mg tablet,delayed 81 mg PO DAILY 09/15/24 09/22/24 09/12/24 History release cholecalciferol (vitamin D3) 25 25 mcg PO DAILY 09/15/24 09/15/24 Unknown History mcg (1,000 unit) capsule (Vitamin D3) coenzyme Q10 100 mg capsule (Co 100 mg PO DAILY 09/15/24 09/15/24 Unknown History Q-10) lactobacillus comb no.10 20 20,000 mmu cells PO DAILY 09/15/24 09/15/24 Unknown History billion cell capsule (Probiotic) omega-3 fatty acids-fish oil 684 1 cap PO DAILY 09/15/24 09/15/24 Unknown History mg-1,200 mg capsule,delayed release Exam Height,Weight and Vital Signs: Height 5 ft Weight 66.224 kg Last Vital Signs Pulse 92 09/15/24 10:15 Resp 20 09/15/24 10:15 BP 184/77 H 09/15/24 10:15 Pulse Ox 97 09/15/24 10:15 O2 Del Method Room Air 09/15/24 10:15 Pertinent Lab Results Pertinent Lab Results: Lab Results 09/15/24 Range/Units 11:07 WBC 7.6 (4.8-10.8) X10*3/uL RBC 4.47 (4.20-5.50) X10*6/uL Hgb 14.0 (12.0-16.0) g/dl Hct 39.6 (37.0-47.0) % MCV 88.6 (80.0-98.0) fL MCH 31.3 (27.0-33.0) pg MCHC 35.4 H (31.0-35.0) g/dl RDW 14.3 (11.0-16.0) % Plt Count 234 (160-400) X10*3/uL MPV 10.2 (9.4-12.3) fL Absolute Nucleated RBC 0.000 (0.0-0.012) X10*3/uL Nucleated RBC % (auto) 0.0 (0.0-0.2) /100WBC Sodium 129 L (135-145) mmol/L Potassium 4.2 (3.3-5.1) mmol/L Chloride 93 L (96-108) mmol/L Carbon Dioxide 25 (22-29) mmol/L Anion Gap 15 (12-20) BUN 28 H (9-16) mg/dL Creatinine 0.91 (0.5-1.4) mg/dL Estim Creat Clear Calc 39.0 Estimated GFR 59 Random Glucose 268 H (60-115) mg/dL Estimat Average Glucose 148 mg/dL Hemoglobin A1c % 6.8 H (<6.0) % Calcium 9.8 (8.4-10.2) mg/dL Narrative Narrative: EKG 08/2024 Vent. Rate : 103 BPM Atrial Rate : 103 BPM P-R Int : 156 ms QRS Dur : 84 ms QT Int : 306 ms P-R-T Axes : 61 75 61 degrees QTcB Int : 400 ms Sinus tachycardia Possible Left atrial enlargement Borderline ECG No previous ECGs available Airway Mallampati Class: II TM Dist: >3cm Neck ROM: Full Loose/Missing/Broken Teeth: No (crowns in molars) Heart: RR, tachy Lungs: CTAB Assessment and Plan Assessment Anesthesia Assessment: Anesthesia Plan Discussed and PAT Visit Final Anesthetic Review Family History of Problems with Anesthesia: No History of Problems with Anesthesia: Yes (PONV) Documented by User: Tena Kamara NP 09/20/24 15:34 HPI - Anesthesia Eval Consult details Narrative: 84yo F for Bilateral Unilateral Approach for a Bilateral L3-4 Decompression, 09/22/24 [facility] [place]: no absolute medical contraindications to proceeding with proposed surgery. Na low @ 129 with preop labs. Follows with renal, Dr. Marcellus Cline, last visit 07/11/24; on HCTZ for BP, causing transient hyponatremia, Na improves with fluid restriction. No recent illness No CP/SOB with activity limited to pain HTN: BP up at PAT r/t nerves, checks at home with BP's ~ 120/60. Will bring home log DOS DM: metformin, does not check POC PONV: severe N/V with bleph, severe motion sickness. Reviewed risks of scopolamine (dizzy, urinary retention, confusion in older adults) - pt opts to have DOS CKD: Follows renal htn, CKD [facility] Past Medical History Medical History (Updated 09/15/24 @ 10:26 by Avis Sherman RN) White coat syndrome with hypertension PONV (postoperative nausea and vomiting) PAD (peripheral artery disease) Type 2 diabetes mellitus Steatosis of liver RLS (restless legs syndrome) Osteopenia Hypothyroid HTN (hypertension) Hyperlipidemia GERD (gastroesophageal reflux disease) Fibromyalgia Renal cyst Chronic renal insufficiency Anxiety Surgical History Surgical History (Updated 09/22/24 @ 08:14 by Gail Reynolds RN) History of tonsillectomy and adenoidectomy H/O colonoscopy Hx of bilateral cataract extraction Hx of blepharoplasty Social History Social History Are you a primary director of medicare to a significant other at home: No Do you presently have visiting nurse or other home services: No Patient Tobacco Use Status: Never used Tobacco Use of substances other than those prescribed or required for medical reasons: No Have you been hit, kicked, punched, or otherwise hurt by someone within the past year? If so, by whom?: No Spiritual Healthcare Practices: no Sabianist Healthcare Practices: no Cultural Healthcare Practices: no Are you DNR?: No Advance Directives on File: No FDLMP: n/a Poor oral hygiene: No Meds Allergies Allergy/AdvReac Type Severity Reaction Status Date / Time sulfamethoxazole (From Allergy Severe Hives Verified 09/01/24 13:11 Bactrim) trimethoprim (From Bactrim) Allergy Severe Hives Verified 09/01/24 13:11 Quinolones Allergy Intermediate Hives Verified 09/15/24 10:09 cefuroxime (From Ceftin) Allergy Unknown long Verified 09/15/24 10:09 ago-does not know reaction ciprofloxacin Allergy Unknown long Verified 09/15/24 10:09 ago-does not know reaction lisinopril Allergy Unknown does not Verified 09/15/24 10:09 remember reaction paroxetine (From Paxil) Allergy Unknown does not Verified 09/15/24 10:09 remember reaction Penicillins Allergy Unknown long Verified 09/15/24 10:09 ago-does not know reaction Home Medications ?Medication ?Instructions ?Recorded ?Confirmed ?Last Taken ?Type ezetimibe 10 mg tablet 10 mg PO QAM 09/14/24 09/15/24 Unknown History ipratropium bromide 42 mcg (0.06 2 spray intranasal TID PRN Nasal 09/14/24 09/15/24 Unknown History %) nasal spray Congestion irbesartan 150 1 tab PO QAM 09/14/24 09/15/24 Unknown History mg-hydrochlorothiazide 12.5 mg tablet metformin 500 mg tablet,extended 500 mg PO QAM 09/14/24 09/15/24 Unknown History release 24 hr omeprazole 20 mg capsule,delayed 20 mg PO BEDTIME 09/14/24 09/15/24 Unknown History release red yeast rice 600 mg capsule 600 mg PO QAM 09/14/24 09/15/24 Unknown History thyroid (pork) 15 mg tablet 15 mg PO QAM 09/14/24 09/15/24 09/22/24 History ([facility]well Thyroid) thyroid (pork) 30 mg tablet 30 mg PO QAM 09/14/24 09/15/24 09/22/24 History ([facility]well Thyroid) vitamin B complex 1 tab PO DAILY 09/14/24 09/15/24 Unknown History aspirin 81 mg tablet,delayed 81 mg PO DAILY 09/15/24 09/22/24 09/12/24 History release cholecalciferol (vitamin D3) 25 25 mcg PO DAILY 09/15/24 09/15/24 Unknown History mcg (1,000 unit) capsule (Vitamin D3) coenzyme Q10 100 mg capsule (Co 100 mg PO DAILY 09/15/24 09/15/24 Unknown History Q-10) lactobacillus comb no.10 20 20,000 mmu cells PO DAILY 09/15/24 09/15/24 Unknown History billion cell capsule (Probiotic) omega-3 fatty acids-fish oil 684 1 cap PO DAILY 09/15/24 09/15/24 Unknown History mg-1,200 mg capsule,delayed release Documented by User: Lydia Jarvis DO 09/22/24 09:26 HPI - Anesthesia Eval Consult details Narrative: 84yo F for Bilateral Unilateral Approach for a Bilateral L3-4 Decompression, 09/22/24 [facility] preop visit 09/16/24: no absolute medical contraindications to proceeding with proposed surgery. Na low @ 129 with preop labs. Follows with renal, Dr. Marcellus Cline, last visit 07/11/24; on HCTZ for BP, causing transient hyponatremia, Na improves with fluid restriction. No recent illness No CP/SOB with activity limited to pain HTN: BP up at PAT r/t nerves, checks at home with BP's ~ 120/60. Will bring home log DOS DM: metformin, does not check POC PONV: severe N/V, severe motion sickness. Reviewed risks of scopolamine (dizzy, urinary retention, confusion in older adults) - pt opts to have DOS CKD: Follows renal htn, CKD PMFSH Past Medical History Medical History (Updated 09/15/24 @ 10:26 by Avis Sherman RN) White coat syndrome with hypertension PONV (postoperative nausea and vomiting) PAD (peripheral artery disease) Type 2 diabetes mellitus Steatosis of liver RLS (restless legs syndrome) Osteopenia Hypothyroid HTN (hypertension) Hyperlipidemia GERD (gastroesophageal reflux disease) Fibromyalgia Renal cyst Chronic renal insufficiency Anxiety Family History Family history of problems with anesthesia: No Surgical History Surgical History (Updated 09/22/24 @ 08:14 by Gail Reynolds RN) History of tonsillectomy and adenoidectomy H/O colonoscopy Hx of bilateral cataract extraction Hx of blepharoplasty History of Problems with Anesthesia: Yes (PONV) Social History Social History Are you a primary director of medicare to a significant other at home: No Do you presently have visiting nurse or other home services: No Patient Tobacco Use Status: Never used Tobacco Use of substances other than those prescribed or required for medical reasons: No Have you been hit, kicked, punched, or otherwise hurt by someone within the past year? If so, by whom?: No Spiritual Healthcare Practices: no Sabianist Healthcare Practices: no Cultural Healthcare Practices: no Are you DNR?: No Advance Directives on File: No FDLMP: n/a Poor oral hygiene: No Meds Allergies Allergy/AdvReac Type Severity Reaction Status Date / Time sulfamethoxazole (From Allergy Severe Hives Verified 09/01/24 13:11 Bactrim) trimethoprim (From Bactrim) Allergy Severe Hives Verified 09/01/24 13:11 Quinolones Allergy Intermediate Hives Verified 09/15/24 10:09 cefuroxime (From Ceftin) Allergy Unknown long Verified 09/15/24 10:09 ago-does not know reaction ciprofloxacin Allergy Unknown long Verified 09/15/24 10:09 ago-does not know reaction lisinopril Allergy Unknown does not Verified 09/15/24 10:09 remember reaction paroxetine (From Paxil) Allergy Unknown does not Verified 09/15/24 10:09 remember reaction Penicillins Allergy Unknown long Verified 09/15/24 10:09 ago-does not know reaction Home Medications ?Medication ?Instructions ?Recorded ?Confirmed ?Last Taken ?Type ezetimibe 10 mg tablet 10 mg PO QAM 09/14/24 09/15/24 Unknown History ipratropium bromide 42 mcg (0.06 2 spray intranasal TID PRN Nasal 09/14/24 09/15/24 Unknown History %) nasal spray Congestion irbesartan 150 1 tab PO QAM 09/14/24 09/15/24 Unknown History mg-hydrochlorothiazide 12.5 mg tablet metformin 500 mg tablet,extended 500 mg PO QAM 09/14/24 09/15/24 Unknown History release 24 hr omeprazole 20 mg capsule,delayed 20 mg PO BEDTIME 09/14/24 09/15/24 Unknown History release red yeast rice 600 mg capsule 600 mg PO QAM 09/14/24 09/15/24 Unknown History thyroid (pork) 15 mg tablet 15 mg PO QAM 09/14/24 09/15/24 09/22/24 History (Orwell Thyroid) thyroid (pork) 30 mg tablet 30 mg PO QAM 09/14/24 09/15/24 09/22/24 History (Orwell Thyroid) vitamin B complex 1 tab PO DAILY 09/14/24 09/15/24 Unknown History aspirin 81 mg tablet,delayed 81 mg PO DAILY 09/15/24 09/22/24 09/12/24 History release cholecalciferol (vitamin D3) 25 25 mcg PO DAILY 09/15/24 09/15/24 Unknown History mcg (1,000 unit) capsule (Vitamin D3) coenzyme Q10 100 mg capsule (Co 100 mg PO DAILY 09/15/24 09/15/24 Unknown History Q-10) lactobacillus comb no.10 20 20,000 mmu cells PO DAILY 09/15/24 09/15/24 Unknown History billion cell capsule (Probiotic) omega-3 fatty acids-fish oil 684 1 cap PO DAILY 09/15/24 09/15/24 Unknown History mg-1,200 mg capsule,delayed release Exam Exam Date and Time: 09/22/24 0920 Height,Weight and Vital Signs: Height 5 ft Weight 66.224 kg Last Vital Signs Pulse 92 09/15/24 10:15 Resp 20 09/15/24 10:15 BP 184/77 H 09/15/24 10:15 Pulse Ox 97 09/15/24 10:15 O2 Del Method Room Air 09/15/24 10:15 Vital Signs Pulse Rate 92 09/15/24 10:15 Respiratory Rate 20 09/15/24 10:15 Blood Pressure 184/77 H 09/15/24 10:15 Pulse Oximetry 97 09/15/24 10:15 Oxygen Delivery Method Room Air 09/15/24 10:15 Temperature 98.3 F 09/22/24 08:38 Pulse Rate 92 09/22/24 08:38 Respiratory Rate 16 09/22/24 08:38 Blood Pressure 196/83 H 09/22/24 08:38 Pulse Oximetry 97 09/22/24 08:38 Oxygen Delivery Method Room Air 09/22/24 08:38 Airway Mallampati Class: I TM Dist: >3cm Neck ROM: Full Loose/Missing/Broken Teeth: No (patient denies any loose or broken teeth) Heart: S1S2 Assessment and Plan Assessment Anesthesia Assessment: Anesthesia Plan Discussed and Chart Reviewed Final Anesthetic Review Family History of Problems with Anesthesia: No History of Problems with Anesthesia: Yes (PONV) NPO: Yes ASA Class: III Final Preanesthetic Review: No Changes in Pt Med Stat, Meds/Allgs Chart Reviewed, Consent Obtained/Reviewed and Anes Risks/Benef Reviewed Patient Risk: Intermediate Procedure Risk: Intermediate Anesthetic Plan Anesthetic Plan: GA and Agree w/ Assess. and Plan Disposition: Standard PACU
--- NOTE | 2024-09-22 09:59 | PC.NURSE ---
last 12 minutes of vancomycin patient started to scratch her scalp. no sob no resp distress. no redness noted to chest or neck or face. denies throat itching. redness noted to her scalp. cont to monitor.
--- NOTE | 2024-09-22 10:07 | PC.NURSE ---
MD BONILLA AWARE.
--- NOTE | 2024-09-22 10:13 | PC.NURSE ---
BHUPENDRA CONNECTED MD [facility] REGARDING VANCOMYCIN REACTION.
--- NOTE | 2024-09-22 10:22 | P.DS_ITS ---
DS: Providers Provider Date of Service: 09/22/24 Date of discharge: 09/22/24 Primary care physician: Kaye Blunt NP DS: Summary Time Attestation Discharge Coordination Time (in mins): 12 Quality: Safe Use of Opioids Does Pt have an Active Cancer Diagnosis on the Problem List?: No Quality: Stroke Does the patient have a stroke diagnosis?: No Physical Exam Vital Signs: Vital Signs: Last Vital Signs Temp 98.3 F 09/22/24 08:38 Pulse 79 09/22/24 09:24 Resp 16 09/22/24 08:38 BP 182/72 H 09/22/24 09:24 Pulse Ox 97 09/22/24 08:38 O2 Del Method Room Air 09/22/24 08:38 BMI result Body Mass Index 28.6 DS: Data Data Completed and Pending Labs on day of discharge: Laboratory Results - last 24 hr 09/22/24 09/22/24 08:47 08:49 Sodium 137 Potassium 4.4 Chloride 103 Carbon Dioxide 25 Anion Gap 13 POC Glucose 177 H Discharge Plan Discharge Patient Disposition: Home, Self-Care Referrals: Kaye Blunt NP [Primary Care Provider, Internal Medicine] - 1 Week Discharge Medications: New oxycodone 5 mg tablet 5 mg PO Q6H PRN (Reason: pain) Qty: 20 0RF Rx Instructions: Partial Fill upon patient request. Continued irbesartan-hydrochlorothiazide 150-12.5 mg tablet 1 tab PO QAM omeprazole 20 mg capsule,delayed release(DR/EC) 20 mg PO BEDTIME vitamin B complex Tablet 1 tab PO DAILY ipratropium bromide 42 mcg (0.06 %) spray,non-aerosol 2 spray intranasal TID PRN (Reason: Nasal Congestion) metformin 500 mg tablet extended release 24 hr 500 mg PO QAM ezetimibe 10 mg tablet 10 mg PO QAM red yeast rice 600 mg Capsule 600 mg PO QAM Rx Instructions: give with meal/snack thyroid (pork) [[facility] Thyroid] 15 mg tablet 15 mg PO QAM thyroid (pork) [[facility] Thyroid] 30 mg tablet 30 mg PO QAM coenzyme Q10 [Co Q-10] 100 mg Capsule 100 mg PO DAILY omega-3 fatty acids-fish oil 684-1,200 mg Capsule,Delayed Release(Dr/Ec) 1 cap PO DAILY Probiotic 20 billion cell Capsule 20,000 mmu cells PO DAILY Rx Instructions: administer with a meal cholecalciferol (vitamin D3) [Vitamin D3] 25 mcg (1,000 unit) Capsule 25 mcg PO DAILY Held aspirin 81 mg Tablet,Delayed Release (Dr/Ec) 81 mg PO DAILY Hold Instructions: Resume on 09/27/24. Discharge Orders: Discharge Order (Routine); Ordered 09/22/24 Ordered By: Mauricio Young Diet: Advance to usual diet Activity on Discharge: As tolerated Activity Restrictions/Additional Instructions: After your spinal surgery we ask you to observe the following restrictions/guidelines: Activity: It is normal to feel some discomfort as you increase your activity, but that will improve with time. We ask you avoid heavy lifting or acitivities that cause pain. As a general rule, 8lbs is a safe limit for lifting right after surgery. Walk as much as you feel comfortable but not to exhaustion. You will feel extra tired the first few days after surgery. Stay well hydrated. It is OK to walk up and down stairs You may return to driving when you are off narcotics (such as vicodin, oxycodone, dilaudid, etc), and you are back to normal functional capacity. If you have any concerns please check with office before driving. Return to work is specific to each patient and each surgery, so please speak with your doctor/PA at first follow up. Please bring paperwork such as FMLA at that time if you need it filled out. Medications: We recommend you take 1,000mg Tylenol every 8 hours for the first few weeks after surgery, if you do not have any liver issues and can tolerate this med ication. Do not exceed 4,000mg daily. We will give you a short supply of narcotics after surgery (usually one weeks worth). If you need more please call the office but do not use more than prescribed. You will need to give our office 48 hours notice if you need narcotics refilled and we do not fill narcotics on weekends or evenings. If you are on a narcotic, it is a good idea to take a stool softener such as colace or senna to avoid constipation If you take blood thinner such as aspirin, Plavix, Coumadin, Effient, Eliquis etc for conditions such as Afib, DVT, Pulmonary embolus, coronary disease, stents etc please speak with your surgeon about specific details as to when you can resume these medications. You can resume NSAIDs on post op day 1 (eg: Motrin, Naproxen, etc). Follow up: Please call the office, , after surgery to arrange a 3 week follow up for wound check. Wound Care: You may remove your dressing on the first day after surgery. ?You may ?leave open to air. Please do not remove the steri strips underneath. they will fall off on their own in one week. IT IS NORMAL FOR THE WOUND TO OOZE OR BE BLOODY FOR A FEW DAYS AFTER SURGERY. ?IF THIS HAPPENS JUST PLACE NEW DRESSING OVER IT TO AVOID STAINING CLOTHES. You may shower on post op day # 1 We ask that you do not let the water soak the wound. If it does get wet, just towel dry lightly. Please do not scrub your incision or place any type of chemical/ointment on the wound. No tub baths, pools or jacuzzis for one month. If you have any leaking or redness from your wound, or fevers, please call the office. Print Language: Japanese
--- NOTE | 2024-09-22 11:15 | W.PM.OPN ---
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 I have explained the nature, purpose and benefits of the operation. I have discussed the risks and benefit of the operation including possible complications or adverse events with patient/family. Alternative(s) were discussed with the patient with their relative benefits and risks as well as the consequences of not accepting the operation were included in obtaining consent. 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 The patient was offered a decompression. The procedure complications were explained. The patient was consented. The patient was brought to the operating room and endotracheally intubated. The patient was turned in prone position on the Onesimo frame. Prep and drape was done followed by timeout. The Phys[facility] child care center assistant director provided access. A mid lumbar incision was made followed by release of the paravertebral muscle on the left side to expose the L4-5 lamina and facet joints. An intraoperative x-ray was obtained to confirm the correct level. The microscope was brought in. I took over the procedure. The high-speed drill was used to do a L4-5 laminotomy until flavum ligament was reached. A #2 Kerrison was used to expand the laminotomy near flush to the pedicles and to include a partial facetectomy. The flavum ligament was opened and resected with a #3 Kerrison to decompress the underlying thecal sac. The flavum ligament was removed to decompress the lateral recess and the exiting L5 nerve root. Then the patient was turned contralaterally. The spinous process was undercut after which the flavum ligament was resected contralaterally to decompress the exiting nerve root in the lateral recess. A long nerve hook could be easily passed along the medial side of the pedicles as a sign of adequate decompression. The microscope was removed. Hemostasis was done. The physician child care center assistant director close the Incision in 2 layers. Steri-Strips were used to approximate incision. An OpSite with Tegaderm was used to cover the incision. All sponge needle counts were correct. Patient was extubated and transported in stable is to recovery room. Anesthesia: General Estimated Blood Loss (ml): 30 Complications: None Duration of Surgery: Under 60 Minutes Postoperative Plan: Discharge to home
== END 2024-09-22 14:02 | disposition home or self-care (01) ==
PROVIDERS: Nurse Practitioner; PCP Nurse Practitioner Family; Visit Provider Neurological Surgery
PROC: (CPT 63047; principal; 2024-09-22 10:00)
DX: M48.062 Spinal stenosis, lumbar region with neurogenic claudication (principal); M54.50 Low back pain, unspecified; Z88.2 Allergy status to sulfonamides; R26.2 Difficulty in walking, not elsewhere classified; I10 Essential (primary) hypertension; E03.9 Hypothyroidism, unspecified; E11.9 Type 2 diabetes mellitus without complications; Z79.899 Other long term (current) drug therapy; Z79.82 Long term (current) use of aspirin; Z79.84 Long term (current) use of oral hypoglycemic drugs
CPT/HCPCS: 63047; 36415; 80048; 80051; 82947; 83036; 85027; 93005; J0131; J1100; J1630; J2003; J2371; J2405; J2704; J3010; J3374

== ENCOUNTER → 2024-09-22 07:47 | Outpatient (BNV) | payer MEDICARE, OTHER, SELFPAY | PROVIDERS: PCP Nurse Practitioner Family; Visit Provider Neurological Surgery | DX: M48.062 Spinal stenosis, lumbar region with neurogenic claudication (principal) | CPT/HCPCS: 63047; 99499 ==

== ENCOUNTER 2024-10-13 10:42 | Outpatient (AMB) | payer MEDICARE, OTHER, SELFPAY ==
--- NOTE | 2024-10-13 10:45 | HO.SPINEOV ---
Intake Visit Reasons: 1st post op Intake Note: Ms. Gabriel is here today for her 1st post-op visit. Clerical Administrative Assistant Required: No Allergies sulfamethoxazole (From Bactrim) Allergy (Severe, Verified 09/01/24 13:11) Hives trimethoprim (From Bactrim) Allergy (Severe, Verified 09/01/24 13:11) Hives Quinolones Allergy (Intermediate, Verified 09/15/24 10:09) Hives cefuroxime (From Ceftin) Allergy (Unknown, Verified 09/15/24 10:09) long ago-does not know reaction ciprofloxacin Allergy (Unknown, Verified 09/15/24 10:09) long ago-does not know reaction lisinopril Allergy (Unknown, Verified 09/15/24 10:09) does not remember reaction paroxetine (From Paxil) Allergy (Unknown, Verified 09/15/24 10:09) does not remember reaction Penicillins Allergy (Unknown, Verified 09/15/24 10:09) long ago-does not know reaction vancomycin Adverse Reaction (Mild, Verified 09/22/24 10:13) Itching Assessment & Plan Assessment & Plan (1) Status post lumbar spine surgery for decompression of spinal cord: Code(s): Z98.890 - Other specified postprocedural states Category: Surgical Plan Operation: L4-5 Laminotomy, Partial facetectomy and foraminotomy Hermila Is a pleasant 84-year-old female comes in today for her 1st postoperative visit after having a L4-5 lumbar decompression completed by Dr. Urrutia. Overall she is very satisfied with the results of her surgery, and states that her pain has reduced about 85%. Given this, she had a very complicated postoperative course. Unfortunately she began experiencing some fairly significant chest pain after returning back home post day surgery PACU stabilization. She called the clinic to ask for our recommendations regarding this. We recommended that she go to the emergency department for evaluation. She was found to have atrial fibrillation which they are able to get under control, and set her up with an appointment for Cardiology. She states that the signing teacher informed her that she was given excessive fluids during her surgery which gave her atrial fibrillation. This is very odd from our perspective given that her surgery was <60 minutes in total. Thankfully, she is doing well now, and her atrial fibrillation is stabilized. No new neurological deficits. The patient ambulates well and rises from a seated position without difficulty. Her posterior incision site is closed and well healing. I would like to follow up with the patient again in 6 weeks for her 2nd postop visit. Mauricio Urrutia MD,PhD [facility] Coding Level of Care Code Global (42533) Diagnoses Status post lumbar spine surgery for decompression of spinal cord Z98.890
--- OUTSIDE RECORDS SUMMARY | 2024-10-13 11:49 | XMS_ITS | Clinical Summary ---
Author Organization [facility] Address [address] [place] [address] Care Team Providers Care Fan Mail Clerk Name Role Phone Kaye Blunt APRN Primary Care Provider [phone] Marcellus Cline MD Unavailable [phone] Aubrey Petersen MD Unavailable Allergies Active Allergy [...] Yeast Rice Extract 600 MG Cap Active Boise Thyroid 15 MG tablet TAKE 1 TABLET BY MOUTH DAILY IN THE MORNING with 30mg Boise 3 Active Boise Thyroid 30 MG tablet TAKE 1 TABLET [...] crush, break or chew. 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 05/04/2023 Encounters Date Type Department Care Team Description 10/09/2024 Orders Only [facility] [place] [address] [place] [id number] Marcellus Cline MD Chronic renal failure, stage 3a (HCC) 09/16/2024 Scanned Document [facility] [place] [address] [facility] [address] [place] [address] Marcellus Cline MD 09/15/2024 Telephone [facility] [place] [address] [facility] [address] [place] [address] Marcellus Cline MD 07/14/2024 Orders Only NEPHROLOGY [address] [place] [address] Marcellus Cline MD Chronic renal failure, stage 3a (HCC) 07/13/2024 Telephone [facility] [place] [address] [facility] [address] [place] [address] Marcellus Cline MD from Last 3 Months Social History Tobacco [...] [facility] [place] [address] [place] [address] Marcellus Cline MD [address] [facility] [address] [place] [address] Health Maintenance Due Date Last Done Comments [...] Date/Time Associated Diagnosis Comments HEMOGLOBIN A1C Routine 07/09/2024 8:55 AM EDT BASIC METABOLIC PANEL Routine 07/09/2024 8:55 AM EDT Essential hypertension ALBUMIN/CREATININE RATIO, RANDOMURINE Routine 02/22/2024 7:49 AM EST from Last 3 Months or Most Recently Relevant to Health Maintenance Results * (ABNORMAL) Hemoglobin A1C (07/09/2024 8:55 AM EDT) Hemoglobin A1C 7.4(H) 4.8 - 5.6 % [facility] 1 Comment: Prediabetes: 5.7 - 6.4 Diabetes: >6.4 Glycemic control for adults with diabetes: <7.0 07/09/2024 8:55 AM EDT 07/09/2024 Narrative [facility] ([place]) - 07/11/2024 12:05 AM EDT Performed at: 01 - [address] [id number] Dehydrator Operator: Sahra White MD, Phone: [phone] us Marcellus Cline MD LAB BLOOD ORDERABLES [...] 07/11/2024 12:05 AM EDT Performed at: - [facility] [address] [id number] Dehydrator Operator: Sahra White MD, Phone: [phone] Marcellus Cline MD LAB BLOOD ORDERABLES Edit ed Result - Final Performing Organization Address [facility]/ZIP Co de Phone Number [facility] ([place]) [facility] * (ABNORMAL) Albumin/Creatinine Ration, RandomUrine (02/22/2024 7:49 AM EST) Albumin, Urine 36.8 Not Estab. ug/mL [facility] 1 Microalbumin/Cre atinine Ratio 73(H) 0 - 29 mg/g creat [facility] 1 Comment: Normal: 0 - 29 Moderately increased: 30 - 300 Severely increased: >300 02/22/2024 7:49 AM EST 02/22/2024 Narrative [facility] ([place]) - 02/23/2024 3:06 PM EST Performed at: - [facility] [address] [id number] Dehydrator Operator: Sahra White MD, Phone: [phone] Marcellus Cline MD URINE ORDERABLES Final Re sult [facility] ([place]) [facility] 1 from Last 3 Months or Most Recently Relevant to Health Maintenance Insurance MEDICARE PART A & B [facility] Care Teams Fan Mail Clerk Relationship Specialty Start Date End Date Kaye Blunt APRN [address] [place] [address] PCP - General Family Medicine 05/04/23 Marcellus Cline MD [address] [place] [id number] Nephrology 05/04/23 Aubrey Petersen MD [address] [place] [phone] Endocrinology 09/14/23
--- OUTSIDE RECORDS SUMMARY | 2024-10-13 11:49 | XMS_ITS | Clinical Summary ---
Author Organization [facility] Address [address] [place] [address] Phone Care Team Providers Care Front End Specialist Name Role Phone Kaye Blunt NP Primary Care Provider Encounters Date Type Department Care Team Description 08/31/[address] [place] [address] Kaye Blunt NP Referral (Left message for patient to call back to schedule a new patient visit with a assistant facility manager. Marzena Ram) from Last 3 Months Social [...] Description 02/02/2025 10:20 AM EST Office Visit [facility] [address] [facility] [address] [place] [phone] Ervin Wirght MD [address] [facility] [address] [place] [address] Health Maintenance Due Date Last Done Comments DTaP,Tdap,and Td Vaccines (1 - Tdap) 08/16/1959 Pneumococcal Vaccine: 50+ Ye ars (1 of 1 - PCV) 1990 Zoster Vaccines (1 of 2) 1990 RSV Immunization Adult Patie nts (1 - 1-dose 75+ series) 08/16/2015 COVID-19 Vaccine ( - 2023-2 5 season) 2023 Cholesterol Screening (Lipid Panel) 02/17/2024 Falls Risk Assessment 02/17/2024 Medicare Annual Wellness Visit 02/17/2024 Osteoporosis Screening (Bone Density Screening) 02/17/2024 Social Influencers of Health Screening 02/17/2024 Depression Screening 03/02/2024 Influenza Vaccine (#1) 2024 HIB Vaccines Aged [...] age to complete this topic Insurance MEDICARE [facility] MEDICARE Care Teams Front End Specialist Relationship Specialty Start Date End Date Kaye Blunt NP PCP - General Nurse Practitioner 02/17/24
--- OUTSIDE RECORDS SUMMARY | 2024-10-13 11:49 | XMS_ITS | Encounter Summary ---
Author Organization [facility] Address [address] [facility] [address] [place] [phone] Phone Care Team Providers Care System Operator Name Role Phone Elizabeth Alegre MD Unavailable Kaye Blunt NP Primary Care Provide r Encounter Details Date Type Department Care Team (Late st Contact Info) Description 06/01/2024 Procedure Pass [facility], [address] [address] Social History Tobacco Use Types Packs/Day Years Used Date Smoking Tobacco: Never Smokeless Tobacco: Never Alcohol Use Standard Drinks/Week Comments Not Currently 0 (1 standard drink = 0.6 oz pur e alcohol) RARE Education Answer Date Recorded Are you interested in more education? Not on zoltan e 06/27/2022 Are you concerned about learning? Not on file 06/27/2022 No 06/27/2022 No 06/27/2022 Digital Access Answer Date Recorded No 07/26/2022 No 07/26/2022 Reliable internet access at home? Not on file 07/26/2022 Device with a working camera? Not on file Comments No Sex and Gender Information Value Date Recorded Sex Assigned at Female 03/29/2017 1:36 PM EST Legal Sex Female 10:12 PM EDT Gender Identity Female 03/29/2017 1:36 PM EST Sexual Orientation Straight 03/29/2017 1: 36 PM EST documented as of this encounter Plan of Treatment Upcoming Encounters Date Type Department Care Team (Late st Contact Info) Description 11/17/2024 3:00 PM EDT Office Visit [facility] [address] [place] [address] Aubrey Petersen DO [address] [place] [address] 12/13/2024 11:20 AM EDT Office Visit [facility] [address] [place] [address] Elizabeth Alegre MD [address] [place] [phone] [email or web address] documented as of this encounter Visit Diagnoses Not on filedocumented in this encounter Care Teams System Operator Relationship Specialty Start Date End Date Kaye Blunt NP [address] [place] [address] PCP - General Family Medicine 05/09/19 Elizabeth Alegre MD [address] [place] [phone] [email or web address] Historical LMR Provider 12/20/16 documented as of this encounter Additional Source Comments The information contained in this document represents components of the legal health record. It is not the complete legal health record.[facility]
--- OUTSIDE RECORDS SUMMARY | 2024-10-13 11:49 | XMS_ITS | Clinical Summary ---
Author Organization [facility] Address [address] [place] [address] Care Team Providers Care Carpenters Supervisor Name Role Phone Kaye Blunt NP Primary Care Provider [phone] Allergies Active Allergy Reactions Criticality Noted Date [...] AM EDT) Hemoglobin A1C 7.3(H) (4.0-5.6) % [facility] Comment: MONITORING: In known diabetic patients, hemoglobin A1c targets should be discussed with health care provider. DIAGNOSTIC USE: The [place] Diabetes Association (ADA) and the World Health [...] Supplement 1 Testing performed or reported by [facility], a Service of [facility], [address] [place] [id number] Francisco Spain MD, Equity Trader [facility]# [id number] Blood specimen (specimen) Venous blood / Unknown 12/05/2022 8:04 AM EDT 12/05/2022 8:06 AM EDT us Marcellus Cline MD LAB BLOOD ORDERABLES Jennifer analy Result [facility] from Last 3 Months or Most Recently Relevant to Health Maintenance Insurance [facility] Medicare [facility] Medicare Care Teams Carpenters Supervisor Relationship Specialty Start Date End Date Kaye Blunt NP [address] [place] [address] PCP - General 03/12/20
== END 2024-10-13 11:14 | disposition home or self-care (01) ==
LOC: HO.HNS 10:43
PROVIDERS: PCP Nurse Practitioner Family; Visit Provider Physician Assistant
DX: Z98.890 Other specified postprocedural states (principal)
CPT/HCPCS: 99024

== ENCOUNTER → 2024-10-13 10:42 | Outpatient (BNVA) | payer MEDICARE, OTHER, SELFPAY | PROVIDERS: PCP Nurse Practitioner Family; Visit Provider Physician Assistant | DX: Z47.89 Encounter for other orthopedic aftercare (principal); Z98.890 Other specified postprocedural states | CPT/HCPCS: 99212 ==

== ENCOUNTER 2024-11-24 10:25 | Outpatient (AMB) | payer MEDICARE, OTHER, SELFPAY ==
--- NOTE | 2024-11-24 10:34 | A.SPINEOV_ITS ---
Intake Visit Reasons: 2nd post op Intake Note: Ms. Gabriel is here today for her 2nd post op. Level Designer Required: No Allergies sulfamethoxazole (From Bactrim) Allergy (Severe, Verified 09/01/24 13:11) Hives trimethoprim (From Bactrim) Allergy (Severe, Verified 09/01/24 13:11) Hives Quinolones Allergy (Intermediate, Verified 09/15/24 10:09) Hives cefuroxime (From Ceftin) Allergy (Unknown, Verified 09/15/24 10:09) long ago-does not know reaction ciprofloxacin Allergy (Unknown, Verified 09/15/24 10:09) long ago-does not know reaction lisinopril Allergy (Unknown, Verified 09/15/24 10:09) does not remember reaction paroxetine (From Paxil) Allergy (Unknown, Verified 09/15/24 10:09) does not remember reaction Penicillins Allergy (Unknown, Verified 09/15/24 10:09) long ago-does not know reaction vancomycin Adverse Reaction (Mild, Verified 09/22/24 10:13) Itching Assessment & Plan Assessment & Plan (1) Status post lumbar spine surgery for decompression of spinal cord: Code(s): Z98.890 - Other specified postprocedural states Category: Surgical Plan Operation: L4-5 Laminotomy, Partial facetectomy and foraminotomy Hermila is a pleasant 84 year old female who comes in today for her 2nd postop visit after having L4-5 lumbar decompression completed 09/22/[address] Urrutia for neurogenic claudication. She reports that she had good resolution of her symptoms directly after surgery, however unfortunately has had a near complete return of her leg cramping with ambulation, and her back pain. She has attempted to main relatively active, but is discouraged with the surgery overall. I discussed the possibility of sending her to physical therapy, which she is agreeable to. In the interim I would like her to try and remain active via walking each day. No new neurological deficits. The patient ambulates well and rises from a seated position without difficulty. She uses no assistive devices to ambulate. I would like Hermila to complete a full 6-8 weeks of physical therapy, then call the office for a subsequent appointment/evaluation. If she continues to have her seen preoperative pain despite physical therapy, I may consider ordering flexion/extension x-rays and subsequent imaging thereafter. Mauricio Urrutia MD,PhD [facility] Orders: Orders PT Evaluation and Treatment Today Z98.890 - Other specified postprocedural states Coding Level of Care Code Global (84365) Diagnoses Status post lumbar spine surgery for decompression of spinal cord Z98.890
--- OUTSIDE RECORDS SUMMARY | 2024-11-24 13:06 | XMS_ITS | Clinical Summary ---
Author Organization [facility] Address [address] [place] [address] Phone Care Team Providers Care Solar Hot Water Installer Name Role Phone Kaye Blunt GLOBAL RISK MANAGEMENT DIRECTOR Primary Care Provider Encounters Date Type Department Care Team Description 08/31/[address] [place] [address] Kaye Blunt NP from Last 3 Months Social History Tobacco [...] nts (1 - 1-dose 75+ series) 08/16/2015 Cholesterol Screening (Lipid Panel) 02/17/2024 Falls Risk Assessment 02/17/2024 Medicare Annual Wellness Visit 02/17/2024 Osteoporosis Screening (Bone Density Screening) 02/17/2024 Social Influencers of Health Screening 02/17/2024 Depression Screening 03/02/2024 COVID-19 Vaccine ( - 2023-2 5 season) 2024 Influenza Vaccine (#1) 2024 HIB Vaccines Aged [...] age to complete this topic Insurance MEDICARE [facility] MEDICARE Care Teams Solar Hot Water Installer Relationship Specialty Start Date End Date Kaye Blunt NP PCP - General Nurse Practitioner 02/17/24
== END 2024-11-24 10:59 | disposition home or self-care (01) ==
LOC: HO.HNS 10:26
PROVIDERS: PCP Nurse Practitioner Family; Visit Provider Physician Assistant
DX: Z98.890 Other specified postprocedural states (principal)
CPT/HCPCS: 99024

== ENCOUNTER → 2024-11-24 10:25 | Outpatient (BNVA) | payer MEDICARE, OTHER, SELFPAY | PROVIDERS: PCP Nurse Practitioner Family; Visit Provider Physician Assistant | DX: M54.9 Dorsalgia, unspecified (principal); Z98.890 Other specified postprocedural states | CPT/HCPCS: 99212 ==